=== PATIENT | female | born 2000 | race African-American/Black ===

== ENCOUNTER 2018-01-18 22:45 | Emergency (ER) | payer OTHER ==
[2018-01-18 23:00] VITALS: BP 131/113; PULSE 104; TEMP 98.2; BMI 21.4
[2018-01-19] MEDS ORDERED: SODIUM CHLORIDE 1,000 ML IV STA (00:42)
--- NOTE | 2018-01-19 00:42 | PDOC ---
History of Present Illness - General History Source: Patient Exam Limitations: No Limitations - History of Present Illness Initial Comments: 01/19/18 03:05 Best Contact: PCP:N/A Pmhx:N/A Pshx:N/A Allergies:NKDA LMP:01/02/2018 17-year-old female presents to the emergency department complaining of 2 bouts of nausea/vomiting that's non-bilious and nonbloody. Patient denies fever, chills, nausea/vomiting, chest pain, shortness of breath, back pains, abdominal pains, flank pains, urinary symptoms. Patient states she is unsure if this the food she ate earlier this afternoon but adamantly denies any abdominal discomfort. <Jacek Sahu - Last Filed: 01/19/18 03:36> <Agatha Morales - Last Filed: 01/19/18 06:29> - General Chief Complaint: Nausea/Vomiting Stated Complaint: VOMITING Time Seen by Provider: 01/18/18 23:40 Past History - Past Medical History COPD: No Other medical history: Pt denies - Suicide/Smoking/Psychosocial Hx Smoking History: Never smoked Have you smoked in the past 12 months: No Information on smoking cessation initiated: No Hx Alcohol Use: No Drug/Substance Use Hx: No Substance Use Type: None <Jacek Sahu - Last Filed: 01/19/18 03:36> <Agatha Morales - Last Filed: 01/19/18 06:29> - Past Medical History Allergies/Adverse Reactions: Allergies Allergy/AdvReac Type Severity Reaction Status Date / Time No Known Allergies Allergy Verified 01/18/18 22:56 Home Medications: Ambulatory Orders NK [No Known Home Medication] 01/19/18 Review of Systems - Review of Systems Able to Perform ROS?: Yes Comments:: 01/19/18 03:39 CONSTITUTIONAL: Absent: fever, chills, diaphoresis, generalized weakness, malaise, loss of appetite HEENT: Absent: rhinorrhea, nasal congestion, throat pain, throat swelling, difficulty swallowing, mouth swelling, ear pain, eye pain, visual Changes CARDIOVASCULAR: Absent: chest pain, loss of consciousness, palpitations, irregular heart rate, peripheral edema RESPIRATORY: Absent: cough, shortness of breath, dyspnea with exertion, orthopnea, wheezing, stridor, hemoptysis GASTROINTESTINAL: +left pelvic pain Absent: abdominal pain, abdominal distension, nausea, vomiting, diarrhea, constipation, melena, hematochezia GENITOURINARY: Absent: dysuria, frequency, urgency, hesitancy, hematuria, flank pain, genital pain MUSCULOSKELETAL: Absent: myalgia, arthralgia, joint swelling SKIN: Absent: rash, itching, pallor Is the patient limited Croatian proficient: No <Jacek Sahu - Last Filed: 01/19/18 03:36> *Physical Exam - Vital Signs Last Vital Signs Temp Pulse Resp BP Pulse Ox 98.2 F 104 H 20 131/113 100 01/18/18 22:57 01/18/18 22:57 01/18/18 22:57 01/18/18 22:57 01/18/18 22:57 <Jacek Sahu - Last Filed: 01/19/18 03:36> - Vital Signs Last Vital Signs Temp Pulse Resp BP Pulse Ox 98.2 F 104 H 20 131/113 100 01/18/18 22:57 01/18/18 22:57 01/18/18 22:57 01/18/18 22:57 01/18/18 22:57 <Agatha Morales - Last Filed: 01/19/18 06:29> ED Treatment Course - LABORATORY CBC & Chemistry Diagram: 01/19/18 00:53 01/19/18 00:53 <Luis AlbertoJacek - Last Filed: 01/19/18 03:36> - LABORATORY CBC & Chemistry Diagram: 01/19/18 00:53 01/19/18 00:53 - ADDITIONAL ORDERS Additional order review: Laboratory Results 01/19/18 01/19/18 02:03 00:53 Sodium 141 Potassium 4.2 Chloride 105 Carbon Dioxide 26 Anion Gap 10 BUN 10 Creatinine 0.7 Creat Clearance w eGFR > 60 Random Glucose 105 Calcium 9.8 Total Bilirubin 0.5 AST 19 ALT 17 Alkaline Phosphatase 71 Total Protein 8.4 H Albumin 5.0 Urine Color Yellow Urine Appearance Cloudy Urine pH 6.0 Ur Specific [place] 1.027 Urine Protein 1+ H Urine Glucose (UA) Negative Urine Ketones 1+ H Urine Blood Negative Urine Nitrite Negative Urine Bilirubin Negative Urine Urobilinogen 2.0 H Ur Leukocyte Esterase Negative Urine WBC (Auto) 5 Urine RBC (Auto) 2 Ur Epithelial Cells Moderate Urine Bacteria Rare Urine Mucus Many Urine HCG, Qual Negative 01/19/18 00:53 RBC 4.15 MCV 93.1 MCHC 35.9 RDW 12.7 MPV 8.3 Neutrophils % 90.1 H Lymphocytes % 8.1 Monocytes % 1.7 L Eosinophils % 0.0 Basophils % 0.1 - Medications Given in the ED: ED Medications Discontinued Medications Generic Name Dose Route Start Last Admin Trade Name Elise PRN Reason Stop Dose Admin Sodium Chloride 1,000 mls @ 1,000 mls/hr 01/19/18 00:42 01/19/18 00:58 Normal Saline - IV 01/19/18 01:41 1,000 mls/hr ASDIR STA Administration Ondansetron HCl 4 mg 01/19/18 01:59 01/19/18 02:00 Zofran Injection IVPUSH 01/19/18 02:00 4 mg ONCE ONE Administration <Agatha Morales - Last Filed: 01/19/18 06:29> *DC/Admit/Observation/Transfer - Discharge Dispostion Admit: No <Jacek Sahu - Last Filed: 01/19/18 03:36> - Attestations Physician Attestion: I reviewed the case with the mid-level practitioner and agree with the mid- level practitioner's assessment, diagnosis and disposition. <Agatha Morales - Last Filed: 01/19/18 06:29> Diagnosis at time of Disposition: Nausea & vomiting Qualifiers: Vomiting type: unspecified Vomiting Intractability: non-intractable Qualified Code(s): R11.2 - Nausea with vomiting, unspecified - Discharge Dispostion Disposition: HOME Condition at time of disposition: Stable - Referrals Referrals: Otoniel Corrales MD [Primary Care Provider] - - Patient Instructions Printed Discharge Instructions: DI for Nausea -- Adult, DI for Vomiting -- Adult Additional Instructions: Increase fluids Follow-up with your physician within the next 48 hours Return to the emergency department for severe/persistent or worsening symptoms - Post Discharge Activity
[2018-01-19 01:01] LABS: BASO % 0.1 % (0-2.0); HEMATOCRIT 38.6 % (32.4-45.2); HEMOGLOBIN 13.9 GM/dL (10.7-15.3); LYMPH % 8.1 % (8-40); MCH 33.4 pg (25.7-33.7); MCHC 35.9 g/dl (32.0-36.0); MEAN CELL VOLUME 93.1 fl (80-96); MEAN PLT VOLUME 8.3 fl (7.5-11.1); MONO % 1.7 % (3.8-10.2); NEUT % 90.1 % (42.8-82.8); PLATELET COUNT 207 K/MM3 (134-434); RBC 4.15 M/mm3 (3.60-5.2); RDW 12.7 % (11.6-15.6); WHITE BLOOD COUNT 9.7 K/mm3 (4.0-10.0)
[2018-01-19 01:27] LABS: ANION GAP 10 (8-16); BLOOD UREA NITROGEN 10 mg/dL (7-18); CALCIUM 9.8 mg/dL (8.5-10.1); CHLORIDE 105 mmol/L (98-107); CO2 26 mmol/L (21-32); CREATININE 0.7 mg/dL (0.55-1.02); GLUCOSE,RANDOM 105 mg/dL (74-106); POTASSIUM 4.2 mmol/L (3.5-5.1); SGOT/AST 19 U/L (15-37); SGPT/ALT 17 U/L (12-78); SODIUM 141 mmol/L (136-145)
[2018-01-19 01:30] LABS: ALK PHOS 71 U/L (45-117); BILIRUBIN,TOTAL 0.5 mg/dL (0.2-1.0); TOT PROT 8.4 g/dl (6.4-8.2)
[2018-01-19] MEDS ORDERED: ONDANSETRON 4 MG/2 ML VIAL IVPUSH ONE (01:59)
[2018-01-19] MEDS ORDERED: ONDANSETRON 4 MG/2 ML VIAL ONE (02:00)
[2018-01-19 02:31] LABS: URINE APPEARANCE CLOUDY; URINE BILIRUBIN NEGATIVE (<2.0 mg/dL); URINE BLOOD NEGATIVE (NEGATIVE); URINE COLOR YELLOW; URINE GLUCOSE (UA) NEGATIVE (NEGATIVE); URINE KETONE 1+ (NEGATIVE); URINE LEUK ESTERASE NEGATIVE (NEGATIVE); URINE NITRITE NEGATIVE (NEGATIVE)
[2018-01-19 02:33] LABS: HCG,QUALITATIVE URINE NEGATIVE
[2018-01-19 02:34] LABS: URINE PROTEIN 1+ (NEGATIVE)
[2018-01-19 02:35] LABS: EPI CELLS MODERATE /HPF (FEW); URINE BACTERIA RARE /hpf (NONE SEEN); URINE MUCUS MANY
== END 2018-01-19 04:33 | disposition home or self-care (01) ==
LOC: JER 22:45
PROC: 3E0337Z Introduction of Electrolytic and Water Balance Substance into Peripheral Vein, Percutaneous Approach (ICD-10-PCS; principal; 2018-01-18)
PROC: 3E033GC Introduction of Other Therapeutic Substance into Peripheral Vein, Percutaneous Approach (ICD-10-PCS; 2018-01-18)
DX: R11.2 Nausea with vomiting, unspecified (principal)
CPT/HCPCS: 36415; 80053; 81003; 81015; 84703; 85025; 96361; 96374; 99282-25; J7030

== ENCOUNTER 2019-07-08 15:37 | Emergency (ER) | payer SELFPAY ==
[2019-07-08 15:44] VITALS: BP 100/57; PULSE 80; TEMP 98; BMI 20.5
--- NOTE | 2019-07-08 15:53 | PDOC ---
Rapid Medical Evaluation Chief Complaint: Pain Time Seen by Provider: 07/08/19 15:50 Medical Evaluation: Allergies Allergy/AdvReac Type Severity Reaction Status Date / Time No Known Allergies Allergy Verified 07/08/19 15:44 Vital Signs Temp Pulse Resp BP Pulse Ox 98 F 80 18 100/57 L 100 07/08/19 15:42 07/08/19 15:42 07/08/19 15:42 07/08/19 15:42 07/08/19 15:42 07/08/19 15:50 Pt c/o: bump to rt cheek x 2 days, no fever, sore throat or dental complaints Pt on brief exam: vss, noted small excoriated area to rt cheek along white line Pt ordered for: none Pt to proceed to the ED Discharge Disposition - Diagnosis Cheek biting - Referrals - Patient Instructions - Post Discharge Activity
--- NOTE | 2019-07-08 17:09 | PDOC ---
History of Present Illness - General Chief Complaint: Pain Stated Complaint: BUMP IN MOUTH Time Seen by Provider: 07/08/19 15:50 - History of Present Illness Initial Comments: 07/08/19 17:07 19-year-old female without comorbidities presents for evaluation of right-sided dental pain x5 days without systemic symptoms Past History - Past Medical History Allergies/Adverse Reactions: Allergies Allergy/AdvReac Type Severity Reaction Status Date / Time No Known Allergies Allergy Verified 07/08/19 15:44 Home Medications: Ambulatory Orders Amoxicillin - [Amoxicillin 500mg Capsule -] 500 mg PO TID #21 capsule 07/08/19 Ibuprofen [Motrin -] 600 mg PO TID #30 tablet 07/08/19 COPD: No - Psycho Social/Smoking Cessation Hx Smoking History: Current every day smoker Have you smoked in the past 12 months: No Number of Cigarettes Smoked Daily: 1 Information on smoking cessation initiated: No Hx Alcohol Use: No Drug/Substance Use Hx: No Substance Use Type: None Review of Systems - Review of Systems Constitutional: No: Fever HEENTM: Yes: Dental Problems *Physical Exam - Vital Signs Last Vital Signs Temp Pulse Resp BP Pulse Ox 98 F 80 18 100/57 L 100 07/08/19 15:42 07/08/19 15:42 07/08/19 15:42 07/08/19 15:42 07/08/19 15:42 - Physical Exam Comments: 07/08/19 17:08 HEAD: NC/AT EYES: Conjuntiva clear Ears: Canals and TM's normal NOSE: No d/c THROAT: Moist mucous membrances, oral pharanx clear, uvula midline; no dental abscess tenderness over the right lower wisdom molar NECK: Supple without adenopathy MS: Full ROM in all joints without edema NEUROLOGIC: No gross sensory or motor deficits, NVID SKIN: Normal color and temperature no lesions or rashes Medical Decision Making - Medical Decision Making 07/08/19 17:08 We will treat with prophylactic antibiotics have patient follow-up with urgent care dental Discharge - Discharge Information Problems reviewed: Yes Clinical Impression/Diagnosis: Cheek biting, Dental implant pain Condition: Stable Disposition: HOME - Admission No - Additional Discharge Information Prescriptions: Amoxicillin - [Amoxicillin 500mg Capsule -] 500 mg PO TID #21 capsule Ibuprofen [Motrin -] 600 mg PO TID #30 tablet - Follow up/Referral Referrals: Taryn Carranza [Primary Care Provider] - [facility] [Outside] - Patient Discharge Instructions Additional Instructions: Return to the emergency room for worsening symptoms. Please follow-up with urgent care dental in 1 to 2 days for further evaluation and treatment options. Please take the antibiotics and the pain medication as directed. Follow-up with urgent care dental in 1 to 2 days without fail. - Post Discharge Activity
== END 2019-07-08 17:28 | disposition home or self-care (01) ==
LOC: JERFT 15:37
DX: T85.848A Pain due to other internal prosthetic devices, implants and grafts, initial encounter (principal); K13.1 Cheek and lip biting; K08.89 Other specified disorders of teeth and supporting structures
CPT/HCPCS: 99281-25

== ENCOUNTER 2020-04-14 20:43 | Emergency (ER) | payer OTHER ==
[2020-04-14 20:59] VITALS: BP 99/48; PULSE 76; TEMP 98; BMI 19.7
[2020-04-14] MEDS ORDERED: ONDANSETRON 4 MG/2 ML VIAL IVPUSH ONE (21:23)
[2020-04-14] MEDS ORDERED: SODIUM CHLORIDE 1,000 ML IV STA (21:23)
--- NOTE | 2020-04-14 21:43 | PDOC ---
History of Present Illness - General Chief Complaint: Nausea/Vomiting Stated Complaint: VOMITING/NAUSEA Time Seen by Provider: 04/14/20 21:03 History Source: Patient Exam Limitations: No Limitations - History of Present Illness Travel History: No Initial Comments: 04/14/20 21:40 HISTORY OF PRESENT ILLNESS: 19-year-old woman prima with LMP 03/02/2020 who presents emergency department for evaluation of nausea and vomiting for which she has been unable to tolerate p.o.'s for the past 2 days. Patient reports she is having bilious vomiting after she takes anything orally. Patient reports she was seen at [facility] in the [place] earlier today reported having the nausea but was discharged without any prescriptions or follow-up. She denies any abdominal pain, vaginal bleeding, vaginal discharge, dysuria, hematuria. No recent travel or sick contacts. PAST MEDICAL HISTORY: Denies past medical history SURGICAL HISTORY: Denies ALLERGIES: No known drug allergies REVIEW OF SYSTEMS General/Constitutional: Denies fever or chills. Denies weakness, weight change. HEENT: Denies change in vision. Denies ear pain or discharge. Denies sore throat. Cardiovascular: Denies chest pain or shortness of breath. Respiratory: Denies cough, wheezing, or hemoptysis. Gastrointestinal: See HPI Genitourinary: Denies dysuria, frequency, or change in urination. Musculoskeletal: Denies joint or muscle swelling or pain. Denies neck or back pain. Skin and breasts: Denies rash or easy bruising. Neurologic: Denies headache, vertigo, loss of consciousness, or loss of sensation. Psychiatric: Denies depression or anxiety. Endocrine: Denies increased thirst. Denies abnormal weight change. Hematologic/Lymphatic: Denies anemia, easy bleeding, or history of blood clots. Allergic/Immunologic: Denies hives or skin allergy. Denies latex allergy. PHYSICAL EXAM General Appearance: Well-appearing, appropriately dressed. No apparent distress, no intoxication. HEENT: EOMI, PERRLA, normal ENT inspection, normal voice, TMs normal, pharynx normal. No conjunctival pallor. No photophobia, scleral icterus. Mucous membranes dry. Respiratory/Chest: Lungs CTAB. No shortness of breath, chest tenderness, respiratory distress, accessory muscle use. No crackles, rales, rhonchi, stridor, wheezing, dullness Cardiovascular: RRR. S1, S2. No JVD, murmur, bradycardia, tachycardia. Vascular Pulses: Dorsalis-Pedis (R): 2+, Dorsalis-Pedis (L): 2+ Gastrointestinal/Abdominal: Normal bowel sounds. Abdomen soft, non-distended. No tenderness or rebound tenderness. No organomegaly, pulsatile mass, guarding, hernia, hepatomegaly, splenomegaly. Past History - Medical History Allergies/Adverse Reactions: Allergies Allergy/AdvReac Type Severity Reaction Status Date / Time No Known Allergies Allergy Verified 04/14/20 20:54 Home Medications: Ambulatory Orders Amoxicillin - [Amoxicillin 500mg Capsule -] 500 mg PO TID #21 capsule 07/08/19 Ibuprofen [Motrin -] 600 mg PO TID #30 tablet 07/08/19 Cephalexin Monohydrate [Keflex -] 500 mg PO BID #14 capsule 04/14/20 Doxylamine Succinate/Vit B6 [Diclegis Dr 10-10 mg Tablet] 1 each PO BID PRN #20 tablet. 04/14/20 COPD: No - Psycho-Social/Smoking History Smoking History: Never smoked Have you smoked in the past 12 months: No Number of Cigarettes Smoked Daily: 1 - Substance Abuse Hx (Audit-C & DAST Scrn) How often the patient has a drink containing alcohol: Never Score: In Men: 4 or > Positive; In Women: 3 or > Positive: 0 Screen Result (Pos requires Nsg. Audit-10AR): Negative *Physical Exam - Vital Signs Last Vital Signs Temp Pulse Resp BP Pulse Ox 98 F 76 18 99/48 L 99 04/14/20 20:45 04/14/20 20:45 04/14/20 20:45 04/14/20 20:45 04/14/20 20:45 ED Treatment Course - LABORATORY CBC & Chemistry Diagram: 04/14/20 21:40 04/14/20 21:40 Medical Decision Making - Medical Decision Making 04/14/20 21:42 A/P: 19-year-old woman with nausea and vomiting in early Physical exam is notable for dry mucous membranes. Otherwise unremarkable. Laboratory testing including lipase and beta hCG Urinalysis, urine culture Normal saline 1 L IV bolus Zofran 4 mg IV push Reassess 04/14/20 23:25 Laboratory Tests 04/14/20 04/14/20 04/14/20 21:40 21:40 23:05 WBC 8.9 RBC 3.72 Hgb 12.1 Hct 35.8 MCV 96.2 H MCH 32.5 MCHC 33.8 RDW 12.8 Plt Count 219 MPV 8.4 Absolute Neuts (auto) 6.9 Neutrophils % 76.6 Lymphocytes % 16.0 D Monocytes % 7.0 D Eosinophils % 0.1 D Basophils % 0.3 Nucleated RBC % 0 Sodium 137 Potassium 3.3 L Chloride 104 Carbon Dioxide 21 Anion Gap 11 BUN 8.0 Creatinine 0.6 Est GFR (CKD-EPI)AfAm 151.01 Est GFR (CKD-EPI)NonAf 130.29 Random Glucose 96 Calcium 9.3 Total Bilirubin 0.8 AST 13 L ALT 16 Alkaline Phosphatase 47 Total Protein 7.1 Albumin 4.0 Lipase 107 Beta HCG, Quant 20104.8 Urine Color Yellow Urine Appearance Cloudy Urine pH 6.0 Ur Specific [place] 1.030 Urine Protein 1+ H Urine Glucose (UA) Negative Urine Ketones 4+ H Urine Blood Negative Urine Nitrite Negative Urine Bilirubin Negative Urine Urobilinogen 1.0 Ur Leukocyte Esterase Negative Urine WBC (Auto) 100.0 Urine RBC (Auto) 10 Urine Casts (Auto) 10 U Epithel Cells (Auto) >36 Urine Bacteria (Auto) 3259 Patient is able to tolerate p.o.'s without difficulty at this time. While urinalysis is likely contaminated given patient's status and symptoms I will treat with Keflex 500 mg twice daily for the next 7 days. Patient reports being dissatisfied with the care received at [facility] and will give referral for CLINIC RECEPTIONIST to continue care. Prescription for Diclegis sent to patient's preferred pharmacy. I discussed the physical exam findings, ancillary test results and final diagnoses with the patient. I answered all of the patient's questions. The patient was satisfied with the care received and felt comfortable with the discharge plan and treatment plan. The patient will call their primary care physician within 24 hours to arrange follow-up and will return to the Emergency Department with any new, persistent or worsening symptoms. Portions of this note have been documented using voice recognition software. As a result, errors may occur in the ecological modeler process. Effort has been made to correct all grammatical and ecological modeler error, but some may have been missed which may produce sporadic inaccurate ecological modeler or nonsensical phrases. Discharge - Discharge Information Problems reviewed: Yes Clinical Impression/Diagnosis: Nausea and vomiting during prior to 22 weeks gestation Condition: Fair Disposition: HOME - Admission No - Additional Discharge Information Prescriptions: Doxylamine Succinate/Vit B6 [Diclegis Dr 10-10 mg Tablet] 1 each PO BID PRN #20 tablet. PRN Reason: Nausea And/Or Vomiting Cephalexin Monohydrate [Keflex -] 500 mg PO BID #14 capsule - Follow up/Referral Referrals: Paulie Lopez MD [Staff Physician] - - Patient Discharge Instructions Additional Instructions: Take your vitamins. Keep well-hydrated. Avoid tobacco and alcohol as well as illegal drugs. Only take Tylenol for pain during . Follow coupon manifest clerk's instructions for appropriate dosage. Take Keflex 1 pill twice a day until all medications have been completed. Take diclegis twice a day as needed for nausea and vomiting. You have been given a referral for a new CLINIC RECEPTIONIST. Call to schedule appointment for evaluation. Return to the emergency department immediately for severe pain, vaginal bleeding that requires more than 2 pads per hour or for any other symptoms. Thank you very much for choosing us to provide your emergent health care needs. - Post Discharge Activity
[2020-04-14 22:04] LABS: BASO % 0.3 % (0-2.0); EOS % 0.1 % (0-4.5); HEMATOCRIT 35.8 % (32.4-45.2); HEMOGLOBIN 12.1 GM/dL (10.7-15.3); MCH 32.5 pg (25.7-33.7); MCHC 33.8 g/dl (32.0-36.0); MEAN CELL VOLUME 96.2 fl (80-96); MEAN PLT VOLUME 8.4 fl (7.5-11.1); NEUT % 76.6 % (42.8-82.8); PLATELET COUNT 219 K/MM3 (134-434); RBC 3.72 M/mm3 (3.60-5.2); RDW 12.8 % (11.6-15.6); WHITE BLOOD COUNT 8.9 K/mm3 (4.0-10.0)
[2020-04-14 22:49] LABS: BILIRUBIN,TOTAL 0.8 mg/dL (0.2-1); CALCIUM 9.3 mg/dL (8.5-10.1); CREATININE 0.6 mg/dL (0.55-1.3); POTASSIUM 3.3 mmol/L (3.5-5.1); TOT PROT 7.1 g/dl (6.4-8.2)
[2020-04-14 23:16] LABS: EPI CELLS >36 /uL (0-25.1); HYALINE CASTS 10 /uL (0-3.1); URINE APPEARANCE CLOUDY; URINE BACTERIA 3259 /uL (0-1359); URINE BILIRUBIN NEGATIVE (NEGATIVE); URINE COLOR YELLOW; URINE GLUCOSE (UA) NEGATIVE (NEGATIVE); URINE KETONE 4+ (NEGATIVE); URINE LEUK ESTERASE NEGATIVE (NEGATIVE); URINE NITRITE NEGATIVE (NEGATIVE); URINE PROTEIN 1+ (NEGATIVE); URINE RBC 10 /uL (0-23.9)
== END 2020-04-14 23:55 | disposition home or self-care (01) ==
LOC: JER 20:43
PROC: 3E033GC Introduction of Other Therapeutic Substance into Peripheral Vein, Percutaneous Approach (ICD-10-PCS; principal; 2020-04-14)
PROC: 3E0337Z Introduction of Electrolytic and Water Balance Substance into Peripheral Vein, Percutaneous Approach (ICD-10-PCS; 2020-04-14)
DX: O21.9 Vomiting of pregnancy, unspecified (principal)
CPT/HCPCS: 36415; 80053; 81003; 83690; 84702; 85025; 87086; 99284-25

== ENCOUNTER 2020-04-16 12:29 | Emergency (ER) | payer OTHER ==
[2020-04-16] MEDS ORDERED: ONDANSETRON 4 MG/2 ML VIAL IVPUSH ONE (12:36)
[2020-04-16] MEDS ORDERED: SODIUM CHLORIDE 1,000 ML IV STA (12:36)
[2020-04-16] MEDS ORDERED: FAMOTIDINE 20 MG/50 ML IVPB 20 MG/50 ML MG IVPB ONE ×2 (12:37→12:58)
--- NOTE | 2020-04-16 12:37 | PDOC ---
Rapid Medical Evaluation Time Seen by Provider: 04/16/20 12:34 Medical Evaluation: Allergies Allergy/AdvReac Type Severity Reaction Status Date / Time No Known Allergies Allergy Verified 04/14/20 20:54 04/16/20 12:34 Pt presents to the ER for vomiting in . LMP 03/02/2020. She presents to day for continuous vomiting and L sided abdominal pain. Pt reports she has not had an ultrasound yet. Reports blood speckled vomit. Exam: Discomfort to the LLQ, appears uncomfortable Orders: labs, US, urine, meds Pt to proceed to the ER for further evaluation Discharge Disposition - Diagnosis Abdominal pain affecting - Referrals - Patient Instructions - Post Discharge Activity
[2020-04-16 12:40] VITALS: BP 103/55; PULSE 71; TEMP 98.5; BMI 19.7
[2020-04-16 13:22] LABS: BASO % 0.3 % (0-2.0); EOS % 0.2 % (0-4.5); HEMATOCRIT 37.8 % (32.4-45.2); HEMOGLOBIN 12.8 GM/dL (10.7-15.3); LYMPH % 15.3 % (8-40); MCH 32.4 pg (25.7-33.7); MCHC 33.8 g/dl (32.0-36.0); MEAN CELL VOLUME 95.7 fl (80-96); MONO % 5.9 % (3.8-10.2); NEUT % 78.3 % (42.8-82.8); PLATELET COUNT 210 K/MM3 (134-434); RBC 3.96 M/mm3 (3.60-5.2); RDW 12.6 % (11.6-15.6); WHITE BLOOD COUNT 8.8 K/mm3 (4.0-10.0)
--- NOTE | 2020-04-16 13:50 | PDOC ---
History of Present Illness - General Chief Complaint: Nausea/Vomiting Stated Complaint: VOMITING Time Seen by Provider: 04/16/20 12:34 History Source: Patient - History of Present Illness Timing/Duration: reports: constant Quality: reports: moderate Past History - Medical History Allergies/Adverse Reactions: Allergies Allergy/AdvReac Type Severity Reaction Status Date / Time No Known Allergies Allergy Verified 04/16/20 12:40 Home Medications: Ambulatory Orders Amoxicillin - [Amoxicillin 500mg Capsule -] 500 mg PO TID #21 capsule 07/08/19 Ibuprofen [Motrin -] 600 mg PO TID #30 tablet 07/08/19 Cephalexin Monohydrate [Keflex -] 500 mg PO BID #14 capsule 04/14/20 Doxylamine Succinate/Vit B6 [Diclegis Dr 10-10 mg Tablet] 1 each PO BID PRN #20 tablet. 04/14/20 COPD: No - Psycho-Social/Smoking History Smoking History: Never smoked Have you smoked in the past 12 months: No Number of Cigarettes Smoked Daily: 1 Information on smoking cessation initiated: No - Substance Abuse Hx (Audit-C & DAST Scrn) How often the patient has a drink containing alcohol: Never Score: In Men: 4 or > Positive; In Women: 3 or > Positive: 0 Screen Result (Pos requires Nsg. Audit-10AR): Negative In the last yr the pt used illegal drug/Rx for NonMed reason: No Score: Yes response is considered Positive: 0 Screen Result (Positive result requires Nsg. DAST-10): Negative Review of Systems - Review of Systems Constitutional: No: Chills, Fever ABD/GI: Yes: Nausea, Vomiting : No: Burning, Dysuria, Flank Pain, Hematuria *Physical Exam - Vital Signs Last Vital Signs Temp Pulse Resp BP Pulse Ox 98.5 F 71 18 103/55 L 100 04/16/20 12:37 04/16/20 12:37 04/16/20 12:37 04/16/20 12:37 04/16/20 12:37 ED Treatment Course - LABORATORY CBC & Chemistry Diagram: 04/16/20 13:00 04/16/20 13:00 - ADDITIONAL ORDERS Additional order review: 04/16/20 13:00 RBC 3.96 MCV 95.7 MCHC 33.8 RDW 12.6 MPV 8.0 Neutrophils % 78.3 Lymphocytes % 15.3 Monocytes % 5.9 Eosinophils % 0.2 D Basophils % 0.3 - Medications Given in the ED: ED Medications Discontinued Medications Generic Name Dose Route Start Last Admin Trade Name Elise PRN Reason Stop Dose Admin Sodium Chloride 1,000 mls @ 1,000 mls/hr 04/16/20 12:36 04/16/20 13:12 Normal Saline - IV 04/16/20 13:35 1,000 mls/hr ASDIR STA Administration Famotidine/Sodium Chloride 20 mg in 50 mls @ 100 mls/hr 04/16/20 12:37 04/16/20 13:12 Pepcid 20 Mg Premixed Ivpb - IVPB 04/16/20 13:06 100 mls/hr ONCE ONE Administration Ondansetron HCl 4 mg 04/16/20 12:36 04/16/20 13:12 Zofran Injection IVPUSH 04/16/20 12:37 4 mg ONCE ONE Administration Medical Decision Making - Medical Decision Making 04/16/20 13:49 19 yo F, , ~ 6 weeks , here w/ n/v. Seen for same yesterday w/ neg labs and sent home on diclegis but never picked up meds for unclear reasons and now return for continued n/v. Labs unremarkable except for UTI, on keflex, ucx w/ normal maddie since. Reports vague abd pain now, no bleeding, dysuria, f/c. No US this preg as of yet see exam Hyperemesis gravidarum Labs unremarkable yesterday Pt never picked up rx Stable here -labs/meds ordered from triage -US for vague abd pain now, no US as of yet -planning on f/u w/ OB at [facility] 04/16/20 15:28 Labs unremarkable today. US read as ~ 6 w IUP w/ FHR. Pt able to william po. Will dc with instructions to tile picker diclegis and keflex and follow up with OB Discharge - Discharge Information Problems reviewed: Yes Clinical Impression/Diagnosis: Abdominal pain affecting , Hyperemesis Condition: Improved Disposition: HOME - Follow up/Referral - Patient Discharge Instructions Patient Printed Discharge Instructions: DI for Hyperemesis Gravidarum Additional Instructions: Please fill diclegis and take as directed Please follow up with [facility]ING [facility] MACHINE OPERATOR at [facility] - Post Discharge Activity
[2020-04-16 14:01] LABS: ALBUMIN 4.1 g/dl (3.4-5.0); BILIRUBIN,TOTAL 0.8 mg/dL (0.2-1); BLOOD UREA NITROGEN 5.9 mg/dL (7-18); CALCIUM 9.5 mg/dL (8.5-10.1); CREATININE 0.5 mg/dL (0.55-1.3); POTASSIUM 3.6 mmol/L (3.5-5.1); TOT PROT 7.4 g/dl (6.4-8.2)
[2020-04-16 14:59] LABS: PH,URINE 6.5 (5.0-8.0); URINE APPEARANCE CLOUDY; URINE BILIRUBIN NEGATIVE (NEGATIVE); URINE COLOR YELLOW; URINE GLUCOSE (UA) NEGATIVE (NEGATIVE); URINE KETONE 4+ (NEGATIVE); URINE LEUK ESTERASE NEGATIVE (NEGATIVE); URINE NITRITE NEGATIVE (NEGATIVE); URINE PROTEIN TRACE (NEGATIVE)
== END 2020-04-16 15:30 | disposition home or self-care (01) ==
LOC: JER 12:29
PROC: 3E033GC Introduction of Other Therapeutic Substance into Peripheral Vein, Percutaneous Approach (ICD-10-PCS; principal; 2020-04-16)
PROC: 3E033GC Introduction of Other Therapeutic Substance into Peripheral Vein, Percutaneous Approach (ICD-10-PCS; 2020-04-16)
PROC: 3E0337Z Introduction of Electrolytic and Water Balance Substance into Peripheral Vein, Percutaneous Approach (ICD-10-PCS; 2020-04-16)
DX: O26.91 Pregnancy related conditions, unspecified, first trimester (principal); O21.1 Hyperemesis gravidarum with metabolic disturbance
CPT/HCPCS: 36415; 76817-TC; 80053; 81003; 83690; 84702; 85025; 86850; 86900; 86901; 87086; 99284-25

== ENCOUNTER 2020-04-27 12:53 | Emergency (ER) | payer OTHER ==
--- NOTE | 2020-04-27 13:02 | PDOC ---
Rapid Medical Evaluation Time Seen by Provider: 04/27/20 13:00 Medical Evaluation: Allergies Allergy/AdvReac Type Severity Reaction Status Date / Time No Known Allergies Allergy Verified 04/16/20 12:40 04/27/20 13:00 I have performed a brief in-person evaluation of this patient. The patient presents with a chief complaint of: n/v/d and feeling "full" quickly after eating. Pt , ~6 weeks and seen here twice for same sxs over past week. On 04/14-labs ok and dc w/ diclegis and keflex for ? UTI, ucx w/ no growth. Seen by me 04/16 and again had nl labs w/ ~6 week IUP w/ FHR. States has 1st appt in 2-3 weeks. No vag bleed, dysuria, f/c Pertinent physical exam findings:stable, well joshua I have ordered the following:nothing The patient will proceed to the ED for further evaluation. Discharge Disposition - Diagnosis Nausea & vomiting Qualifiers: Vomiting type: unspecified Vomiting Intractability: non-intractable Qualified Code(s): R11.2 - Nausea with vomiting, unspecified Diarrhea Qualifiers: Diarrhea type: unspecified type Qualified Code(s): R19.7 - Diarrhea, unspecified - Referrals - Patient Instructions - Post Discharge Activity
[2020-04-27 13:12] VITALS: BMI 19.7
[2020-04-27] MEDS ORDERED: SODIUM CHLORIDE 1,000 ML IV STA (13:42)
[2020-04-27] MEDS ORDERED: ONDANSETRON 4 MG/2 ML VIAL IVPUSH ONE (13:53)
--- NOTE | 2020-04-27 14:07 | PDOC ---
History of Present Illness - General Chief Complaint: Vomiting/Diarrhea Stated Complaint: VOMITING/Diarrhea Time Seen by Provider: 04/27/20 13:00 History Source: Patient Exam Limitations: No Limitations - History of Present Illness Travel History: No Initial Comments: 04/27/20 14:03 HISTORY OF PRESENT ILLNESS: 19-year-old primigravida is currently 6 weeks gestation who presents emergency department for evaluation of continued nausea vomiting now with loose green stools for 2 days. Patient has had multiple visits to the emergency department for the nausea and vomiting for which she was treated with diplegia's and Keflex for presumed UTI. Urine cultures have been no growth x2. Patient has not picked up her prescriptions at the pharmacy. Patient reports she has visit in 2 weeks. No recent travel or sick contacts. PAST MEDICAL HISTORY: Denies past medical history SURGICAL HISTORY: Denies ALLERGIES: No known drug allergies REVIEW OF SYSTEMS General/Constitutional: Denies fever or chills. Denies weakness, weight change. HEENT: Denies change in vision. Denies ear pain or discharge. Denies sore throat. Cardiovascular: Denies chest pain or shortness of breath. Respiratory: Denies cough, wheezing, or hemoptysis. Gastrointestinal: See HPI Genitourinary: Denies dysuria, frequency, or change in urination. Musculoskeletal: Denies joint or muscle swelling or pain. Denies neck or back pain. Skin and breasts: Denies rash or easy bruising. Neurologic: Denies headache, vertigo, loss of consciousness, or loss of sensation. Psychiatric: Denies depression or anxiety. Endocrine: Denies increased thirst. Denies abnormal weight change. Hematologic/Lymphatic: Denies anemia, easy bleeding, or history of blood clots. Allergic/Immunologic: Denies hives or skin allergy. Denies latex allergy. PHYSICAL EXAM General Appearance: Well-appearing, appropriately dressed. No apparent distress, no intoxication. Gastrointestinal/Abdominal: Normal bowel sounds. Abdomen soft, non-distended. No tenderness or rebound tenderness. No organomegaly, pulsatile mass, guarding, hernia, hepatomegaly, splenomegaly. Past History - Medical History Allergies/Adverse Reactions: Allergies Allergy/AdvReac Type Severity Reaction Status Date / Time No Known Allergies Allergy Verified 04/16/20 12:40 Home Medications: Ambulatory Orders Amoxicillin - [Amoxicillin 500mg Capsule -] 500 mg PO TID #21 capsule 07/08/19 Ibuprofen [Motrin -] 600 mg PO TID #30 tablet 07/08/19 Cephalexin Monohydrate [Keflex -] 500 mg PO BID #14 capsule 04/14/20 Doxylamine Succinate/Vit B6 [Diclegis Dr 10-10 mg Tablet] 1 each PO BID PRN #20 tablet. 04/14/20 COPD: No - Reproductive History Is Patient Now?: Yes - Immunization History Immunization Up to Date: No - Psycho-Social/Smoking History Smoking History: Never smoked Have you smoked in the past 12 months: No Number of Cigarettes Smoked Daily: 1 - Substance Abuse Hx (Audit-C & DAST Scrn) How often the patient has a drink containing alcohol: Never Score: In Men: 4 or > Positive; In Women: 3 or > Positive: 0 Screen Result (Pos requires Nsg. Audit-10AR): Negative In the last yr the pt used illegal drug/Rx for NonMed reason: No Score: Yes response is considered Positive: 0 Screen Result (Positive result requires Nsg. DAST-10): Negative *Physical Exam - Vital Signs Last Vital Signs Temp Pulse Resp BP Pulse Ox 97.3 F L 92 H 20 122/70 100 04/27/20 13:01 04/27/20 13:01 04/27/20 13:01 04/27/20 13:01 04/27/20 13:01 Medical Decision Making - Medical Decision Making 04/27/20 14:06 A/P: 19-year-old prima woman with nausea, vomiting and diarrhea Abdominal exam is unremarkable Patient has had negative laboratory testing over the past 2 visits will defer additional blood work at this time. Most likely gastroenteritis given loose stools. Urinalysis Normal saline 1 L IV bolus Zofran 4 mg IV push Reassess 04/27/20 15:40 Patient reports he has improved and is tolerating p.o.'s without difficulty. Patient was requesting discharge at this time. As patient's condition is improved and urinalysis is unremarkable will discharge the patient home. Patient has been encouraged to fill her previous prescription for diclegis continued evaluation I discussed the physical exam findings, ancillary test results and final diagnoses with the patient. I answered all of the patient's questions. The patient was satisfied with the care received and felt comfortable with the discharge plan and treatment plan. The patient will call their primary care physician within 24 hours to arrange follow-up and will return to the Emergency Department with any new, persistent or worsening symptoms. Portions of this note have been documented using voice recognition software. As a result, errors may occur in the shaker plate operator process. Effort has been made to correct all grammatical and shaker plate operator error, but some may have been missed which may produce sporadic inaccurate shaker plate operator or nonsensical phrases. Discharge - Discharge Information Problems reviewed: Yes Clinical Impression/Diagnosis: Nausea & vomiting Qualifiers: Vomiting type: unspecified Vomiting Intractability: non-intractable Qualified Code(s): R11.2 - Nausea with vomiting, unspecified Diarrhea Qualifiers: Diarrhea type: unspecified type Qualified Code(s): R19.7 - Diarrhea, unspec ified Condition: Stable Disposition: HOME - Admission No - Follow up/Referral - Patient Discharge Instructions Additional Instructions: Rest, drink lots of fluids: Teas, water, soups Lani mk, carbonated beverages for the bubbles May try peppermint teas Avoid heavy , spicy or fatty foods until symptoms have resolved Avoid contact with others until fevers and symptoms resolved Lots of handwashing and good hygiene Continue [id number] medications for symptomatic relief Tylenol or Motrin for fever and pain Use previously prescribed diclegis for nausea and/or vomiting. Followup with private physician in one to 2 days as needed Return to emergency department for worsened symptoms, fevers, dehydration - Post Discharge Activity
[2020-04-27 14:57] LABS: URINE APPEARANCE CLEAR; URINE BILIRUBIN NEGATIVE (NEGATIVE); URINE COLOR YELLOW; URINE GLUCOSE (UA) NEGATIVE (NEGATIVE); URINE KETONE 2+ (NEGATIVE); URINE LEUK ESTERASE NEGATIVE (NEGATIVE); URINE NITRITE NEGATIVE (NEGATIVE); URINE PROTEIN NEGATIVE (NEGATIVE); URINE UROBILINOGEN 0.2 mg/dL (0.2-1.0)
[2020-04-27 16:11] VITALS: BP 102/60; PULSE 82; TEMP 100.1
== END 2020-04-27 16:05 | disposition home or self-care (01) ==
LOC: JER 12:53
PROC: 3E033NZ Introduction of Analgesics, Hypnotics, Sedatives into Peripheral Vein, Percutaneous Approach (ICD-10-PCS; principal; 2020-04-27)
PROC: 3E0337Z Introduction of Electrolytic and Water Balance Substance into Peripheral Vein, Percutaneous Approach (ICD-10-PCS; 2020-04-27)
DX: R11.2 Nausea with vomiting, unspecified (principal); R19.7 Diarrhea, unspecified
CPT/HCPCS: 81003; 99284-25

== ENCOUNTER 2020-10-12 12:54 | Inpatient (IN) | payer OTHER ==
[2020-10-12] MEDS ORDERED: BETAMET ACET/BETAMET NA PH 30 MG/5 ML VIAL ONE (13:50)
[2020-10-12] MEDS ORDERED: BETAMET ACET/BETAMET NA PH 30 MG/5 ML VIAL IM ONE (13:53)
[2020-10-12] MEDS ORDERED: ACETAMINOPHEN 325 MG TABLET (FP) PO PRN (13:58)
[2020-10-12] MEDS ORDERED: ELECTROLYTE-148 SOLN 1,000 ML IV SCH (14:00)
[2020-10-12 16:21] VITALS: BMI 25.9
[2020-10-12 17:03] LABS: BASO % 0.1 % (0-2.0); EOS % 0.2 % (0-4.5); HEMATOCRIT 32.2 % (32.4-45.2); HEMOGLOBIN 10.7 GM/dL (10.7-15.3); LYMPH % 6.9 % (8-40); MCHC 33.2 g/dl (32.0-36.0); MEAN CELL VOLUME 90.4 fl (80-96); MEAN PLT VOLUME 8.1 fl (7.5-11.1); MONO % 2.8 % (3.8-10.2); PLATELET COUNT 187 K/MM3 (134-434); RBC 3.56 M/mm3 (3.60-5.2); RDW 13.4 % (11.6-15.6); WHITE BLOOD COUNT 10.4 K/mm3 (4.0-10.0)
[2020-10-12 17:10] LABS: INR 1.03 (0.83-1.09); PROTHROMBIN TIME (PATIENT) 12.4 SEC (9.7-13.0)
[2020-10-12 17:13] LABS: ACTIVATED PTT 25.9 SECONDS (25.2-36.5)
[2020-10-12 17:19] LABS: POTASSIUM 4.1 mmol/L (3.5-5.1)
[2020-10-12 17:21] LABS: CALCIUM 9.1 mg/dL (8.5-10.1)
[2020-10-12 17:25] LABS: CREATININE 0.5 mg/dL (0.55-1.3)
[2020-10-12 19:00] LABS: HIV INTERPRETATION NEGATIVE (NEGATIVE)
[2020-10-12 21:59] LABS: COCAINE, UR NEGATIVE ng/ml (CUTOFF=300); OPIATES, URI NEGATIVE ng/ml (CUTOFF=300); URINE BARBITURATES NEGATIVE ng/ml (CUTOFF=200); URINE BENZODIAZEPINES NEGATIVE ng/ml (CUTOFF=200)
[2020-10-12 22:00] LABS: PHENCYCLIDINE,URINE NEGATIVE ng/ml (CUTOFF=25)
[2020-10-12 22:12] LABS: METHADONE, UR NEGATIVE ng/ml (CUTOFF=300); URINE AMPHETAMINES NEGATIVE ng/ml (CUTOFF=500)
[2020-10-12 23:40] LABS: URINE APPEARANCE CLEAR; URINE BILIRUBIN NEGATIVE (NEGATIVE); URINE COLOR YELLOW; URINE GLUCOSE (UA) 3+ (NEGATIVE); URINE KETONE NEGATIVE (NEGATIVE); URINE LEUK ESTERASE NEGATIVE (NEGATIVE); URINE NITRITE NEGATIVE (NEGATIVE); URINE PROTEIN NEGATIVE (NEGATIVE); URINE UROBILINOGEN 0.2 mg/dL (0.2-1.0)
[2020-10-13 08:51] LABS: POC NITRAZINE NEG
[2020-10-13] MEDS: SODIUM CHLORIDE 1,000 ML IV SCH (09:55)
[2020-10-13] MEDS: PRENATAL VITAMINS W/ FOLIC ACID TABLET (FP) PO SCH (09:56)
[2020-10-13] MEDS ORDERED: BETAMET ACET/BETAMET NA PH 30 MG/5 ML VIAL IM ONE (13:53)
[2020-10-14] MEDS: SODIUM CHLORIDE 1,000 ML IV SCH ×2 (06:00)
[2020-10-14] MEDS: PRENATAL VITAMINS W/ FOLIC ACID TABLET (FP) PO SCH (09:12)
[2020-10-14 11:35] VITALS: BP 105/64; PULSE 103; TEMP 97.5
== END 2020-10-14 11:45 | disposition short-term general hospital (02) | DRG 566 ==
LOC: JDEL 12:54 → JLDR 13:57 → J3W 17:53 → JLDR 10-14 10:13
PROVIDERS: ADMIT Obstetrics & Gynecology; ATTEND Obstetrics & Gynecology
DX: O41.03X0 Oligohydramnios, third trimester, not applicable or unspecified (principal); Z3A.32 32 weeks gestation of pregnancy
CPT/HCPCS: 36415; 76815-TC; 80048; 80307; 81003; 83986-QW; 85025; 85610; 85730; 86762; 86780; 86850; 86900; 86901; 87340; 87389; 96372; C9803; U0003

== ENCOUNTER 2022-03-21 20:47 | Emergency (ER) | payer OTHER ==
[2022-03-21 20:54] VITALS: BP 106/72; PULSE 81; BMI 20.5
[2022-03-21 21:45] VITALS: TEMP 97.8
[2022-03-21] MEDS ORDERED: diphenhydrAMINE HCL 25 MG CAPSULE (FP) PO ONE ×2 (22:28→22:29)
== END 2022-03-21 23:33 | disposition home or self-care (01) ==
LOC: JER 20:47
DX: L50.9 Urticaria, unspecified (principal)
CPT/HCPCS: 99283-25